=== PATIENT | female | born 1970 | race Hispanic/Latino ===

== ENCOUNTER 2020-08-24 14:13 | Emergency (ER) | payer BC ==
[~2020-08-24] VITALS: Ht 149.9 cm; Wt 89.8 kg
== END 2020-08-24 15:54 | disposition home or self-care (01) ==
LOC: ER 15:11
DX: L98.499 Non-pressure chronic ulcer of skin of other sites with unspecified severity (principal); B95.8 Unspecified staphylococcus as the cause of diseases classified elsewhere; I10 Essential (primary) hypertension; F41.9 Anxiety disorder, unspecified; Z87.19 Personal history of other diseases of the digestive system
CPT/HCPCS: 99282